=== PATIENT | male | born 1955 | race Hispanic/Latino ===

== ENCOUNTER 2016-09-29 13:18 | Day surgery (SDC) | payer OTHER ==
[~2016-09-29] VITALS: Ht 162.6 cm; Wt 51.0 kg
[~2016-09-29 13:18] MED LIST: CeFAZolin Inj 2 GM in IV Premix 1 EACH IV ONE; HYDR-4003 PO; LATA2.5D6 OP; Lactated Ringer's 1,000 ML IV SCH; METF500T4 PO; SIMV20TA4 PO; TIMO5DRO27 OP
[2016-09-29] MEDS ORDERED: Propofol 10,000 mCg/mL 20 mL Inj ONE (13:19)
[2016-09-29] MEDS ORDERED: Ondansetron 2 mg/mL 2 mL Inj ONE (13:19)
[2016-09-29] MEDS ORDERED: fentaNYL-PF 50 mCg/mL 2 mL Inj ONE (13:19)
[2016-09-29] MEDS ORDERED: MetoCLOpramide 5 mg/mL 2 mL Inj ONE (13:19)
[2016-09-29 14:05] VITALS: BP 131/89; PULSE 67; RESP 16; O2SAT 99
[2016-09-29] MEDS ORDERED: CeFAZolin Inj 2 gm / 50mL D5W IV ONE (14:23)
[2016-09-29] MEDS ORDERED: Lactated Ringer's 500 ML IV PRN (14:28)
[2016-09-29] MEDS ORDERED: Lactated Ringer's 1,000 ML IV SCH (14:28)
--- NOTE | 2016-09-29 14:28 | PCM.HPANE ---
Patient Data Surgeon Admitting Provider: Attending Provider:Jorge Blum DO Primary Care Physician:Annette Other Provider:Slava Stahl Anesthesia Reason for Visit Right 3 Part Intra-Articular Distal Radial Fractur Ht/WT & BMI Height (Feet): 5 Height (Inches): 4 Weight (Kilograms): 51 Body Mass Index 19.00 Allergies Coded Allergies: No Known Allergies (Unverified , 09/26/16) Past Anesthesia History Anesthesia History: Denies:: Anesthesia Reactions, Fam Anesthesia Reaction, Fam Malignant Hypertherm, Malignant Hyperthermia Diabetes History Hx Diabetes?: Yes Current Bedside Blood Glucose: 174 Medications Reported Medications Latanoprost 2.5 Ml Drops1 Gtt OP HS #1 BOTTLE 09/26/16 Timolol (Betimol)5 Ml Drops5 Ml OP 09/26/16 Metformin 500 Mg TabletUnknown Dose PO BID Ref 0 09/26/16 Simvastatin 20 Mg TabletUnknown Dose PO HS Ref 0 09/26/16 Hydrocodone-Acetaminophen 5-325 mg 1 Each Tablet1 Tablet PO Q4H PRN For Pain Ref 0 09/26/16 History History of ENT Problems?: No HEENT History: Positive for:: Glaucoma Denies:: Abnormal Airway Cataracts Difficult Intubation Dysphagia Hearing Problem Sinus Problem TMJ Denture Type: Full- Upper Partial- Upper Teeth Condition: Within Normal Limits Hx of Heart Problems?: No Cardiovascular History: Denies:: AICD Abdominal Aortic Aneurism Atrial Fibrillation Cardiac Surgery Chest Pain Congestive Heart Failure Coronary Artery Disease Edema Heart Murmur Hypertension Irregular Heartbeat Pacemaker Peripheral Vascular Rheumatic Fever Thrombophlebitis Valvular Heart Disease Hx of Respiratory Problem?: No Respiratory History: Denies:: Asthma COPD Chest Surgery Cough Dyspnea Emphysema Hemoptysis Oxygen Administration Pneumonia Pulmonary Embolism Tuberculosis Use of C-PAP Machine Use of Inhalers / NEBS Hx Neurologic Problems?: No Neurological History: Denies:: Alzheimer's Disease CVA Dementia Dizziness Headaches Multiple Sclerosis Parkinson's Disease Peripheral Neuropathy Seizures TIA Hx of GI Problems?: No Hx of Problems?: No Hx Musculoskeletal Problems?: Yes Musculoskeletal History: Positive for:: Musculoskeletal Trauma (R ARM CURRENT PROBLEM) Hx of Psycho/Social Problems?: No Hx Surgeries?: No Hx Diabetes: YesBedside Blood Glucose: 174 Have You Smoked inLast 12 mo: No Stop/Bang Treated for Sleep Apnea?: No Do You Have a CPAP Machine?: No HAYLEY Risk Assessment: Low Risk, <3 Yes Risk Assessment Category Category 1A: Patient has history of documented sleep apnea, and HAS NOT received any narcotic, sedative or anesthesia administration during this stay. Category 1B: Patient has history of documented sleep apnea, and HAS received any narcotic , sedative or anesthesia administration during this stay Category 2: Patient has SUSPECTED Obstructive Sleep Apnea, and HAS received any narcotic , sedative or anesthesia administration during this stay. Category 3: Patient has SUSPECTED Obstructive Sleep Apnea and HAS NOT received narcotic, sedative or anesthesia administration during this stay. Category 4: Outpatient in Procedural Areas with known sleep apnea or who screen positive for High Risk via the STOP/BANG questionnaire. Exam Exam Vital Signs Vital Signs Date Time Temp Pulse Resp B/P Pulse Ox O2 Delivery O2 Flow Rate FiO2 09/29/16 14:05 36.4 67 16 131/89 99 Room Air General Appearance: Oriented X3 HEENT/AIRWAY: MP 2 Lungs: Normal Air Movement Heart: Regular Rate/Rhythm Meds/Labs/Diagnostics Bedside Blood Glucose: 174 Plan Impression Patient chart reviewed, patient interviewed and anesthestic plan with risks, benefits, and alternatives discussed, and informed consent obtained. ASA Physical Status: ASA2 Mod Systemic Disease Anesthetic Plan: GA Bene/Risks/Altern/Consents: Yes HP Complete Prior to Induction: Yes Lucian Viera MD Sep 29, 2016 14:28
[2016-09-29] MEDS ORDERED: Dexamethasone 4 mg/mL Inj IVPUSH PRN (14:30)
[2016-09-29] MEDS ORDERED: EPHEDrine Sulfate 50 mg/mL Inj IVPUSH PRN (14:30)
[2016-09-29] MEDS ORDERED: Phenylephrine 10,000 mCg/mL Inj IVPUSH PRN (14:30)
[2016-09-29] MEDS ORDERED: MetoCLOpramide 5 mg/mL 2 mL Inj IVPUSH PRN (14:30)
[2016-09-29] MEDS ORDERED: Ondansetron 2 mg/mL 2 mL Inj IVPUSH PRN (14:30)
[2016-09-29] MEDS ORDERED: HYDROcodone-APAP 7.5-325 mg Tablet PO PRN (14:40)
[2016-09-29] MEDS ORDERED: Lactated Ringer's 1,000 ML IV ONE (14:40)
[2016-09-29] MEDS ORDERED: Lidocaine 1%-Epi 1:100,000 20 mL Inj INFILTRATE ONE (15:00)
[2016-09-29 15:54] VITALS: BP 114/64; PULSE 72; RESP 16; O2SAT 99
[2016-09-29 16:02] VITALS: BP 106/52; PULSE 71; RESP 13; O2SAT 99
[2016-09-29 16:11] VITALS: BP 105/65; PULSE 75; RESP 14; O2SAT 99
[2016-09-29] MEDS: fentaNYL-PF 50 mCg/mL 2 mL Inj IVPUSH PRN ×2 (16:21→16:26)
[2016-09-29] MEDS: HYDROmorphone 1 mg/mL Inj IVPUSH PRN ×2 (16:22→16:26)
[2016-09-29 16:23] VITALS: BP 139/89; PULSE 72; RESP 15; O2SAT 97
[2016-09-29 17:45] VITALS: BP 122/74; PULSE 68; RESP 15; O2SAT 97
--- NOTE | 2016-09-30 00:12 | OP ---
[address] [address] OPERATIVE REPORT PATIENT: WHITNEY SCOTT : 1955 MR#: [id number] ADMIT: 09/29/2016 JOB ID: [id number] DATE OF SURGERY: 09/29/2016 PREOPERATIVE DIAGNOSIS(ES): Right three-part intra-articular distal radius fracture. POSTOPERATIVE DIAGNOSIS(ES): Right three-part intra-articular distal radius fracture. PROCEDURE: Open reduction, internal fixation right three-part intra-articular distal radius fracture. SURGEON: Jorge Blum DO. ANESTHESIA: General. HISTORY: The patient is a pleasant 61-year-old male that fell from getting off of a tractor onto his right hand and wrist. He immediately had significant pain and swelling. [facility] with a distal radius fracture and placed into a sugar-tong splint. He has been comfortable within the mobilization. Upon presentation, he demonstrated loss of radial height, as well as inclination, and dorsal angulation of about 15 degrees. I discussed with the patient, as well as through the chief media officer, the risks, benefits and indications to proceed with open reduction, internal fixation of right intra-articular distal radius fracture. He understood the risks include, but not limited to, neurovascular injury, tendon injury, infection, failure of fixation, stiffness, persistent pain, all of which may require further intervention. The patient had all questions answered. Consent was signed and placed in chart. PROCEDURE IN DETAIL: The patient was brought to the operative suite and placed supine on the operating table. Surgical time-out performed and everyone in the room was in agreement. After appropriate anesthesia was obtained, a right upper arm tourniquet was applied and the right upper extremity was prepped and draped in sterile fashion. Right upper extremity was then exsanguinated, tourniquet inflated to 250 mmHg. A standard FCR approach was utilized. The FCR tendon was identified and retracted ulnarly. The subsheath next was incised revealing the underlying flexor pollicis longus. The flexor pollicis longus was also retracted ulnarly revealing underlying pronator quadratus. The pronator quadratus was then released from its most distal radial margin exposing the fracture site. Manual reduction was then performed followed by application of Arthrex narrow volar distal radius plate. The plate was held provisionally with K-wires. The fracture reduction and the placement of the plate was verified under fluoroscopy. This was followed by application of a nonlocking screw within the oblong hole of the plate to pull the plate to the volar cortex of the distal radius. Completion of fixation was performed utilizing locking screws distally and nonlocking screws proximally within the shaft. Final radiographic projections on fluoroscopy utilized to verify anatomic reduction, appropriate placement of the plate and appropriate length of all screws. Copious irrigation was performed followed by closure of the subcutaneous tissue with 4-0 Vicryl and running 4-0 nylon for the skin. The patient was then placed in a well-padded well-molded volar resting splint. ESTIMATED BLOOD LOSS: Less than 1 cc. COMPLICATIONS: None. DISPOSITION: The patient tolerated the procedure well. Anesthesia was reversed. The patient was transferred back to recovery. POSTOPERATIVE PLAN: The patient will follow up in the office in two weeks. Prior to this, he will see occupational therapist be transitioned into a removable brace so we can start initiating hand and wrist range of motion exercises. At two weeks, will remove the sutures, and will hold off on strengthening until approximately eight weeks postop. Repeat x-rays will be taken at the next followup visit. IMPLANTS: Arthrex volar narrow distal radius plate with a combination of nonlocking screws within the shaft and locking screws within the distal aspect of the plate.
--- NOTE | 2016-09-30 07:20 | PCM.ANEP1 ---
Post Anesthesia PACU Phase 1 Assessment Anesthetic Administered: GA Level of Alertness: Awake, talking Pain: No Nausea or Vomiting: No CV Function & Hydration Stable: Yes Airway Device: Lungs: Normal Air Movement PACU Phase 2 Assessment Patient Instructions Provided: N/A Lucina Viera MD Sep 30, 2016 07:20
== END 2016-09-29 23:59 | disposition home or self-care (01) ==
LOC: SAS 13:18
PROVIDERS: ATTEND Orthopaedic Surgery
DX: S52.571A Other intraarticular fracture of lower end of right radius, initial encounter for closed fracture (principal); E11.9 Type 2 diabetes mellitus without complications; Z79.84 Long term (current) use of oral hypoglycemic drugs
CPT/HCPCS: 25609; 76000; C1713; J0690; J1170; J2405; J2765; J3010; J7120